=== PATIENT | female | born 1940 | race Caucasian/White ===

== ENCOUNTER 2017-10-24 16:40 | Emergency (ER) | payer MEDICARE, BC ==
[2017-10-24 17:20] LABS: Hematocrit 45.4 % (36.0-47.0); Mean Platelet Volume 7.1 fL (7.4-10.4); Red Blood Cell (RBC) Count 4.87 mill/uL (4.20-5.40); White Blood Cell (WBC) Count 6.1 thou/uL (4.8-10.8)
[2017-10-24 17:34] LABS: ALT (SGPT) 13 U/L (8-55); AST (SGOT) 14 U/L (5-34); Alkaline Phosphatase 84 U/L (40-150); Anion Gap 14 mmol/L (10-20); BUN (Urea Nitrogen) 14 mg/dL (9.8-20.1); Bilirubin, Total 0.3 mg/dL (0.2-1.2); CK (CPK) 59 U/L (29-168); Calc. Creatinine Clearance 0 mL/min (70-130); Calcium 9.7 mg/dL (7.8-10.44); Carbon Dioxide 25 mmol/L (23-31); Chloride 106 mmol/L (98-107); Estimated GFR-MDRD 55; Globulin 2.9 g/dL (2.4-3.5)
[2017-10-24 17:37] LABS: Neutrophil 48 % (42-75); Reactive Lymphocytes 6 % (0-10)
[2017-10-24 17:38] LABS: Troponin I Less than 0.010 ng/mL (< 0.028)
[2017-10-24] MEDS ORDERED: Metoprolol Tartrate 25 MG TAB ONE (18:47)
== END 2017-10-24 18:55 | disposition home or self-care (01) ==
LOC: ERS 16:40
DX: R00.0 Tachycardia, unspecified (principal); I48.91 Unspecified atrial fibrillation; Z85.43 Personal history of malignant neoplasm of ovary; Z79.899 Other long term (current) drug therapy
CPT/HCPCS: 80053; 82553; 83735; 84443; 84484; 85025; 93005

== ENCOUNTER 2018-04-07 23:10 | Emergency (ER) | payer MEDICARE, BC | END 2018-04-07 23:53 | disposition home or self-care (01) | LOC: ERS 23:10 | DX: I83.92 Asymptomatic varicose veins of left lower extremity (principal); I48.91 Unspecified atrial fibrillation; Z79.899 Other long term (current) drug therapy | CPT/HCPCS: 99283 ==

== ENCOUNTER 2019-05-07 07:29 | Outpatient (CLI) | payer MEDICARE, BC ==
--- NOTE | 2019-05-07 09:38 | ULT ---
RENAL DOPPLER WITH ULTRASOUND: HISTORY: Chronic kidney disease. COMPARISON: None. TECHNIQUE: Ott scale imaging of the kidneys is performed. Renal Doppler is performed with color flow, Doppler, and duplex waveform imaging. FINDINGS: RIGHT KIDNEY: No hydronephrosis. The right kidney measures 11.5 x 4.7 x 4.1 cm. LEFT KIDNEY: Normal cortical echotexture. No hydronephrosis. The left kidney measures 10.3 x 4.9 x 4.3 cm. Visualized bladder is unremarkable. RENAL DOPPLER: Right renal artery peak systolic velocity 93.8 cm/s. Left renal artery peak systolic velocity 137 cm /s. Aorta 73.1 cm/s. Right renal artery to aorta ratio 1.3. Left renal artery to aorta ratio 1.9. Right renal arcuate artery resistive index 0.79. Left renal artery arcuate resistive index 0.76. IMPRESSION: Increased arcuate artery resistive indices in both kidneys. Correlate for medial renal disease. POS: OFF
== END 2019-05-07 07:30 | disposition home or self-care (01) ==
LOC: BICULT 07:29
PROVIDERS: ATTEND Internal Medicine Nephrology
DX: N18.2 Chronic kidney disease, stage 2 (mild) (principal); I25.10 Atherosclerotic heart disease of native coronary artery without angina pectoris; E78.5 Hyperlipidemia, unspecified; N39.0 Urinary tract infection, site not specified; M19.90 Unspecified osteoarthritis, unspecified site
CPT/HCPCS: 36415; 76700; 76770; 80069; 81001; 82570; 84156; 85025; 85652

== ENCOUNTER 2019-05-07 08:04 | Outpatient (CLI) | payer MEDICARE, BC ==
--- NOTE | 2019-05-07 08:38 | MMO ---
Bilateral MAMMO Bilat Screen [facility]. CLINICAL HISTORY: Patient is 78 years old and is seen for screening. The patient has no family history of breast cancer. The patient has a history of ovarian cancer at age 58. The patient has a history of left Excisional Biopsy in 1977 - benign, right Excisional Biopsy in 1989 - benign, left Excisional Biopsy in 1993 - benign, bilateral Excisional Biopsy in 1995 - benign and left Stereotatic Biopsy in 1999 - benign. VIEWS: The views performed were: bilateral craniocaudal with tomosynthesis and bilateral mediolateral oblique with tomosynthesis. FILMS COMPARED: The present examination has been compared to prior imaging studies performed at [facility] on 08/03/2008, 09/23/2013, 01/07/2017 and 01/10/2017. MAMMOGRAM FINDINGS: The breasts are heterogeneously dense, which could obscure a lesion on mammography. There are multiple masses of varying size with circumscribed margins seen in both breasts. There are no suspicious masses, suspicious calcifications, or new areas of architectural distortion. IMPRESSION: THERE IS NO MAMMOGRAPHIC EVIDENCE OF MALIGNANCY. A ROUTINE FOLLOW-UP MAMMOGRAM IN 1 YEAR IS RECOMMENDED. THE RESULTS OF THIS EXAM WERE SENT TO THE PATIENT. ACR BI-RADS Category 2 - Benign finding MAMMOGRAPHY NOTE: 1. A negative mammogram report should not delay a biopsy if a dominant of clinically suspicious mass is present. 2. Approximately 10% to 15% of breast cancers are not detected by mammography. 3. Adenosis and dense breasts may obscure an underlying neoplasm.
== END 2019-05-07 08:05 | disposition home or self-care (01) ==
LOC: BICMAMMO 08:04
PROVIDERS: ATTEND Family Medicine
DX: Z12.31 Encounter for screening mammogram for malignant neoplasm of breast (principal)
CPT/HCPCS: 77063; 77067

== ENCOUNTER 2019-06-24 08:42 | Observation (INO) | payer MEDICARE, BC ==
[2019-06-24 09:51] LABS: #Eosinphils 0.1 thou/uL (0.0-0.7); #Lymphocytes 1.4 thou/uL (1.20-3.40); #Monocytes 0.6 thou/uL (0.11-0.59); #Neutrophils 6.5 thou/uL (1.40-6.50); %Basophils 0.4 % (0.0-1.0); %Eosinophils 1.2 % (0.0-10.0); %Lymphocytes 15.9 % (21.0-51.0); %Neutrophils 75.5 % (42.0-75.0); Hemoglobin 13.7 g/dL (12.0-16.0); Mean Corpuscular HGB CONC 32.6 g/dL (32.0-36.0); Mean Corpuscular Hemoglobin 29.9 pg (27.0-31.0); Mean Platelet Volume 7.2 fL (7.4-10.4); Platelet Count 225 thou/uL (130-400); RBC Distribution Width 12.5 % (11.5-14.5); Red Blood Cell (RBC) Count 4.56 mill/uL (4.20-5.40); White Blood Cell (WBC) Count 8.6 thou/uL (4.8-10.8)
--- NOTE | 2019-06-24 09:57 | RAD ---
EXAM: Single view of the chest HISTORY: Dyspnea COMPARISON: 04/09/2017 FINDINGS: Single view of the chest shows a normal sized cardiomediastinal silhouette. There is no alessandra dence of consolidation, mass, or pleural effusion. The bones are unremarkable. IMPRESSION: No evidence of acute cardiopulmonary disease
[2019-06-24 10:13] LABS: ALT (SGPT) 13 U/L (8-55); AST (SGOT) 14 U/L (5-34); Alkaline Phosphatase 86 U/L (40-150); Anion Gap 10 mmol/L (10-20); BUN (Urea Nitrogen) 12 mg/dL (9.8-20.1); Bilirubin, Total 0.6 mg/dL (0.2-1.2); Calc. Creatinine Clearance 0 mL/min (70-130); Calcium 10.3 mg/dL (7.8-10.44); Carbon Dioxide 29 mmol/L (23-31); Chloride 104 mmol/L (98-107); Estimated GFR-MDRD 78; Globulin 2.5 g/dL (2.4-3.5); Glucose 157 mg/dL (83-110); Potassium 3.7 mmol/L (3.5-5.1); Protein, Total 6.5 g/dL (6.0-8.3); Sodium 139 mmol/L (136-145)
[2019-06-24] MEDS ORDERED: Ondansetron PF 4 MG/2 ML Vial IVP PRN (14:38)
[2019-06-24] MEDS ORDERED: Ondansetron ODT 4 MG TAB PO PRN (14:38)
[2019-06-24] MEDS ORDERED: Zolpidem Tartrate 5 MG TAB PO PRN (14:38)
[2019-06-24] MEDS ORDERED: Acetaminophen 325 MG TAB PO PRN (14:38)
[2019-06-24 14:53] LABS: Troponin I Less than 0.010 ng/mL (< 0.028)
--- NOTE | 2019-06-24 15:25 | HP ---
PRIMARY CARE PHYSICIAN: Dr. Villarreal. HISTORY OF PRESENT ILLNESS: Referred to the [facility] by [facility] for dizziness, nausea, and vomiting. The patient states she got up this morning, felt lightheaded. She checked her blood pressure, it was okay. She lie down for a while, was still dizzy lying down, then developed nausea and vomiting times several. She was sweaty. States she felt like she was going to pass out because she had heard that women have atypical heart attacks. She came to the emergency room. She has no chest pain, no chest pressure, no shortness of breath. PAST MEDICAL HISTORY: Pertinent for ovarian cancer 21 years ago post chemotherapy and radiation therapy. She has a history of atrial fibrillation post 4 ablations. She has been on Xarelto and Multaq in the past, currently off all medicines for that. She states she takes a statin because her brother had an acute HI and . CURRENT MEDICATIONS: 1. Atorvastatin 10 mg a day. 2. Metoprolol 50 mg a day. 3. Aspirin 81 mg a day. 4. She says she has been told not to take any NSAIDs because of renal problems (current renal function is normal). PAST SURGICAL HISTORY: Multiple ablation for atrial fib, hysterectomy, oophorectomy. SOCIAL HISTORY: . Full code status. is unable to make decisions. Son, Reilly Douglas, is decision maker. She does not smoke or drink or use alcohol or illicit drugs. FAMILY HISTORY: Brother of acute HI at 69. No family history of cancer or strokes. REVIEW OF SYSTEMS: GENERAL: She has occasional brief lightheaded spells prior to the present illness. No fainting. No headaches. No fever or chills. EYES: No double vision, blurred vision, or flashing lights. EAR, NOSE, AND THROAT: No ear pain or drainage. No nasal bleeding or trouble swallowing. CARDIAC: No chest pain, orthopnea, or paroxysmal nocturnal dyspnea. RESPIRATIONS: She occasionally spits sinus drainage. She has no chronic cough. No asthma or wheezing. GASTROINTESTINAL: Aforementioned nausea and vomiting in the present illness. Otherwise, no abdominal pain, diarrhea, or melena, etc. GENITOURINARY: No hematuria or dysuria. MUSCULOSKELETAL: No pain or swelling in her arms or legs. NEUROLOGICAL: No strokes, seizures, or focal weakness. PSYCHIATRIC: No anxiety or depression. SKIN: She has one small resolving bruise on her left arm and she states she does not know how she got. No chronic rash. HEME/LYMPH: No tender or swollen lymph nodes in axilla, inguinal, or cervical area. PHYSICAL EXAMINATION: GENERAL: Alert, pleasant, cooperative lady, in no acute distress. VITAL SIGNS: Blood pressure 150/77, pulse 73, respirations 16, temperature 97.6. HEAD, EYES, EARS, NOSE, AND THROAT: Revealed pupils are equal, round, and reactive to light with bilateral cataracts. Extraocular movements are intact. Sclerae are white. Tympanic membranes clear. Nose clear. Oral mucous membranes are wet. Dental hygiene is good. NECK: No jugular venous distention, adenopathy, or thyromegaly. CHEST: Clear to auscultation and percussion. HEART: Regular rate and rhythm. First and second second heart sounds are clear. There are no appreciated murmurs or gallops. ABDOMEN: Soft. Bowel sounds are normal. There is no hepatosplenomegaly. No masses. No rebound. No bruits. EXTREMITIES: Reveal no cyanosis, clubbing, or edema. PULSES: Carotid, radial, femoral, and dorsalis pedis pulses intact and symmetric. SKIN: Warm and dry with one resolving 3/4 centimeter ecchymoses on her left forearm. LYMPHATIC SURVEY: No tender or swollen lymph nodes in the axilla, inguinal, or cervical area. NEUROLOGIC: Cranial nerves 2 through 12 are intact, moves all extremities. Toes going down. DIAGNOSTIC DATA: EKG regular sinus rhythm. No ST-T abnormality reviewed by me. Chest x-ray, no cardiomegaly, CHF, or infiltrate reviewed by me. LABORATORY DATA: CBC unremarkable. White count 8.6, hemoglobin 13.7, and platelet count 225,000. Comprehensive metabolic profiles; only abnormality is glucose of 157, one troponin has been done which is less than 0.01. ADMITTING DIAGNOSES: 1. Dizziness described as lightheadedness. 2. Nausea and vomiting. 3. Atrial fibrillation by history, post ablations. 4. Dyslipidemia. 5. Remote history of ovarian cancer. PLAN: 1. Telemetry. 2. Serial troponins. 3. Telemetry to monitor for atrial fib, etc. 4. Continue home medicines. 5. If her studies prove to be normal, it might be helpful to get either Dr. Dumont, her shell worker or Dr. Greenfield, EP doctor, who has seen her to evaluate her for an event recorder. Job ID: [id number]
[2019-06-24 17:13] VITALS: BMI 26.3
[2019-06-24] MEDS: Sodium Chloride 0.9% 1,000 ML IV SCH (18:00)
[2019-06-24 19:49] LABS: Troponin I Less than 0.010 ng/mL (< 0.028)
[2019-06-25] MEDS: Sodium Chloride 0.9% 1,000 ML IV SCH (02:51)
[2019-06-25 05:05] LABS: #Eosinphils 0.1 thou/uL (0.0-0.7); #Lymphocytes 2.1 thou/uL (1.20-3.40); #Neutrophils 3.5 thou/uL (1.40-6.50); %Basophils 0.6 % (0.0-1.0); %Eosinophils 2.2 % (0.0-10.0); %Lymphocytes 30.7 % (21.0-51.0); %Monocytes 14.5 % (0.0-10.0); Mean Corpuscular HGB CONC 33.7 g/dL (32.0-36.0); Mean Corpuscular Hemoglobin 30.6 pg (27.0-31.0); Mean Corpuscular Volume 90.8 fL (78.0-98.0); Platelet Count 213 thou/uL (130-400); RBC Distribution Width 12.5 % (11.5-14.5); Red Blood Cell (RBC) Count 4.24 mill/uL (4.20-5.40); White Blood Cell (WBC) Count 6.7 thou/uL (4.8-10.8)
[2019-06-25 05:20] LABS: Anion Gap 8 mmol/L (10-20); BUN (Urea Nitrogen) 9 mg/dL (9.8-20.1); Calc. Creatinine Clearance 67 mL/min (70-130); Calcium 9.7 mg/dL (7.8-10.44); Carbon Dioxide 29 mmol/L (23-31); Chloride 108 mmol/L (98-107); Estimated GFR-MDRD 76; Glucose 104 mg/dL (83-110); Potassium 4.3 mmol/L (3.5-5.1); Sodium 141 mmol/L (136-145)
[2019-06-25 08:14] VITALS: BP 122/58; TEMP 98.2
[2019-06-25] MEDS ORDERED: Enoxaparin Sodium 40 MG/0.4 ML SYRINGE SC SCH (09:00)
[2019-06-25] MEDS ORDERED: Atorvastatin Calcium 10 MG TAB PO SCH (09:00)
[2019-06-25] MEDS ORDERED: Aspirin 81 mg Enteric Coated Tablet PO SCH (11:00)
[2019-06-25] MEDS ORDERED: Vitamin E 400 UNITS CAP PO SCH (11:00)
[2019-06-25] MEDS ORDERED: Vit A,C & E/Lutein/Minerals Tablet PO SCH (11:00)
[2019-06-25] MEDS ORDERED: Calcium Carbonate + Vit D 1 TAB PO SCH (11:00)
[2019-06-25] MEDS ORDERED: Ascorbic Acid 500 mg Chewable Tablet PO SCH (11:00)
--- NOTE | 2019-06-25 14:43 | DIS ---
DATE OF ADMISSION: 06/24/2019 DATE OF DISCHARGE: 06/25/2019 PRIMARY CARE PHYSICIAN: Dr. Jorge Luis Villarreal. DISCHARGE DISPOSITION: Home. PRIMARY DISCHARGE DIAGNOSIS: Dizziness due to volume depletion. SECONDARY DISCHARGE DIAGNOSES: 1. Hypertension. 2. Dyslipidemia. 3. Paroxysmal atrial fibrillation. PRIMARY PROCEDURE/OPERATION: None. RADIOLOGICAL INVESTIGATION: Chest x-ray, normal. SIGNIFICANT LABORATORY DATA: Hemoglobin 13.0. Creatinine 0.74. Cardiac enzyme negative. LFT normal. BMP normal. DISCHARGE MEDICATIONS: 1. Vitamin C 500 mg daily. 2. Aspirin 81 mg daily. 3. Lipitor 5 mg daily. 4. Calcium with vitamin D 1 tablet daily. 5. Toprol-XL 25 mg daily. 6. Multivitamin 1 tablet daily. 7. Vitamin E 400 units p.o. daily. CONTRAINDICATION: The patient is not on chronic anticoagulation as per Cardiology recommendation. The patient is in sinus rhythm for a long period of time after ablation and now she does not need any anticoagulation therapy with her history of paroxysmal atrial fibrillation. CODE STATUS: Full code. INPATIENT SHOVEL ENGINEER: None. ALLERGIES: NSAID. DISCHARGE PLAN: Posthospital, the patient is instructed to follow up with primary care physician in 1 week. The patient is verbally instructed to make appointment with Cardiology for further evaluation if needed. HOSPITAL COURSE: A 78-year-old female with above-mentioned medical problem, who was admitted by Dr. Mike. Please see his H and P for further details. The patient was admitted for dizziness. Her dizziness was nonspecific. It was not consistent with vertigo. The patient was not having any palpitation and we did not find any cardiac arrhythmia on 24 hours monitoring while in the hospital. Her orthostatic vitals were also negative. At this point, we do not have any clear-cut explanation for dizziness, but the patient has improvement after giving her IV fluid. We advised her to follow up with Cardiology for possible need of any event recorder. At this point, the patient is stable and she will follow up with primary care physician in 1 week. I have seen and examined the patient at bedside today. All review of systems reviewed with her are negative. Her examination is completely normal. Job ID: [id number]
[2019-06-26] MEDS ORDERED: Calcium Carbonate + Vit D 1 TAB PO SCH (09:00)
[2019-06-26] MEDS ORDERED: Aspirin 81 mg Enteric Coated Tablet PO SCH (09:00)
[2019-06-26] MEDS ORDERED: Ascorbic Acid 500 mg Chewable Tablet PO SCH (09:00)
[2019-06-26] MEDS ORDERED: Vit A,C & E/Lutein/Minerals Tablet PO SCH (09:00)
[2019-06-26] MEDS ORDERED: Vitamin E 400 UNITS CAP PO SCH (09:00)
== END 2019-06-25 11:38 | disposition home or self-care (01) ==
LOC: ERS 08:42 → 2SW 16:51
PROVIDERS: ADMIT Internal Medicine; ATTEND Internal Medicine
DX: E86.9 Volume depletion, unspecified (principal); E78.5 Hyperlipidemia, unspecified; I10 Essential (primary) hypertension; I48.0 Paroxysmal atrial fibrillation; Z79.82 Long term (current) use of aspirin; Z79.899 Other long term (current) drug therapy; Z88.8 Allergy status to other drugs, medicaments and biological substances
CPT/HCPCS: 71045; 80048; 80053; 83880; 84484 ×2; 85025 ×2; 93005; 96360; 96361 ×2; 96372; 99285; G0378 ×3; 36415; J1650

== ENCOUNTER 2020-11-06 09:51 | Outpatient (CLI) | payer MEDICARE, BC ==
--- NOTE | 2020-11-06 10:49 | MMO ---
Bilateral MAMMO Bilat Diag [facility]. CLINICAL HISTORY: Patient is 80 years old and is seen for diagnostic exam and nipple abnormality in the left breast. The patient has no family history of breast cancer. The patient has a history of ovarian cancer at age 58. The patient has a history of left Excisional Biopsy in 1977 - benign, right Excisional Biopsy in 1989 - benign, left Excisional Biopsy in 1993 - benign, bilateral Excisional Biopsy in 1995 - benign and left Stereotatic Biopsy in 1999 - benign. VIEWS: The views performed were: bilateral craniocaudal with tomosynthesis; bilateral mediolateral oblique with tomosynthesis; and bilateral mediolateral with tomosynthesis. FILMS COMPARED: The present examination has been compared to prior imaging studies performed at [facility] on 01/07/2017, 01/10/2017, 05/07/2019 and 11/06/2020. This study has been interpreted with the assistance of computer-aided detection. MAMMOGRAM FINDINGS: The breasts are heterogeneously dense, which could obscure a lesion on mammography. Right breast mass is stable. There are stable right post-operative changes. Left niplle retraction is stable since last year. There are prominient left retroaerolar ducts without mass on US. There is a mass in the left breast corresponding to a 12 mm cyst at 4:00 on US which is also sen on mammogram. There are no suspicious masses, suspicious calcifications, or new areas of architectural distortion. IMPRESSION: THERE IS NO MAMMOGRAPHIC EVIDENCE OF MALIGNANCY. A ROUTINE FOLLOW-UP MAMMOGRAM IN 1 YEAR IS RECOMMENDED. THE RESULTS OF THIS EXAM WERE SENT TO THE PATIENT. ACR BI-RADS Category 2 - Benign finding MAMMOGRAPHY NOTE: 1. A negative mammogram report should not delay a biopsy if a dominant of clinically suspicious mass is present. 2. Approximately 10% to 15% of breast cancers are not detected by mammography. 3. Adenosis and dense breasts may obscure an underlying neoplasm. Reported by: HANDY DICKERSON MD Electonically Signed: [id number]
--- NOTE | 2020-11-06 11:19 | ULT ---
LIMITED LEFT BREAST ULTRASOUND: Date: 11/06/2020 HISTORY: Inverted nipple. FINDINGS: Correlation made with mammogram of same date. The sonographic evaluation of the left retroareolar region demonstrates mildly dilated ducts without evidence of intraductal mass. There is a 1.2 cm somewhat lobulated cyst at the 4 o'clock position 2.0 cm from the nipple which hira esponds to the mass on the mammogram. IMPRESSION: BI-RADS Category 2 - Benign findings. Return to annual mammographic screening. POS: OFF
== END 2020-11-06 09:52 | disposition home or self-care (01) ==
LOC: BICMAMMO 09:51
PROVIDERS: ATTEND Family Medicine
DX: N64.59 Other signs and symptoms in breast (principal)
CPT/HCPCS: 76642; 77066; G0279

== ENCOUNTER 2021-09-27 02:09 | Inpatient (IN) | payer MEDICARE, BC ==
[2021-09-27 02:37] LABS: #Eosinphils 0.1 thou/uL (0.0-0.7); #Lymphocytes 1.4 thou/uL (1.20-3.40); #Monocytes 1.4 thou/uL (0.11-0.59); #Neutrophils 10.9 thou/uL (1.40-6.50); %Basophils 0.3 % (0.0-1.0); %Eosinophils 0.4 % (0.0-10.0); %Lymphocytes 10.1 % (21.0-51.0); %Monocytes 10.3 % (0.0-10.0); %Neutrophils 78.9 % (42.0-75.0); Hemoglobin 15.3 g/dL (12.0-16.0); Mean Corpuscular HGB CONC 34.6 g/dL (32.0-36.0); Mean Corpuscular Hemoglobin 31.3 pg (27.0-31.0); Mean Corpuscular Volume 90.5 fL (78.0-98.0); Mean Platelet Volume 7.5 fL (7.4-10.4); Platelet Count 226 thou/uL (130-400); RBC Distribution Width 12.5 % (11.5-14.5); White Blood Cell (WBC) Count 13.8 thou/uL (4.8-10.8)
[2021-09-27 02:58] LABS: ALT (SGPT) 15 U/L (8-55); AST (SGOT) 15 U/L (5-34); Albumin 4.3 g/dL (3.4-4.8); Alkaline Phosphatase 102 U/L (40-110); Anion Gap 15 mmol/L (10-20); BUN (Urea Nitrogen) 14 mg/dL (9.8-20.1); Calc. Creatinine Clearance 0 mL/min (70-130); Calcium 10.7 mg/dL (7.8-10.44); Carbon Dioxide 26 mmol/L (23-31); Chloride 101 mmol/L (98-107); Globulin 2.5 g/dL (2.4-3.5); Glucose 166 mg/dL (83-110); Lipase 8 U/L (8-78); Potassium 3.3 mmol/L (3.5-5.1); Protein, Total 6.8 g/dL (5.8-8.1); Sodium 139 mmol/L (136-145)
[2021-09-27] MEDS ORDERED: Ondansetron PF 4 MG/2 ML Vial IVP PRN (06:03)
[2021-09-27] MEDS ORDERED: Acetaminophen 325 MG TAB PO PRN (06:03)
[2021-09-27] MEDS ORDERED: Ondansetron ODT 4 MG TAB PO PRN (06:03)
[2021-09-27] MEDS ORDERED: Acetaminophen 650 MG Suppository PR PRN (06:03)
[2021-09-27] MEDS ORDERED: Morphine 4 MG/ML VIAL SLOW IVP PRN (06:05)
[2021-09-27] MEDS ORDERED: Iopamidol-370 76% 500 ML 1 ML ONE (09:09)
[2021-09-27] MEDS: Sodium Chloride 0.45% 1,000 ML IV SCH ×2 (09:49→18:30)
[2021-09-27] MEDS: Potassium Chloride 20 MEQ in Premix Bag 1 BAG IVPB SCH ×2 (09:50→12:18)
[2021-09-27] MEDS: Pantoprazole 40 MG VIAL IVP SCH ×2 (09:59→20:20)
[2021-09-27 10:09] VITALS: BMI 24.7
[2021-09-27 17:47] LABS: SARS-CoV-2 NAA Rapid Test Not Detected (NotDetected)
[2021-09-28] MEDS: Sodium Chloride 0.45% 1,000 ML IV SCH ×2 (02:04→08:27)
[2021-09-28 06:04] LABS: #Basophils 0.1 thou/uL (0.0-0.2); #Eosinphils 0.1 thou/uL (0.0-0.7); #Lymphocytes 1.8 thou/uL (1.20-3.40); #Monocytes 0.9 thou/uL (0.11-0.59); #Neutrophils 3.7 thou/uL (1.40-6.50); %Basophils 0.8 % (0.0-1.0); %Eosinophils 2.3 % (0.0-10.0); %Lymphocytes 27.1 % (21.0-51.0); %Monocytes 14.1 % (0.0-10.0); %Neutrophils 55.8 % (42.0-75.0); Hemoglobin 12.3 g/dL (12.0-16.0); Mean Corpuscular HGB CONC 33.7 g/dL (32.0-36.0); Mean Corpuscular Hemoglobin 31.4 pg (27.0-31.0); Mean Corpuscular Volume 93.2 fL (78.0-98.0); Mean Platelet Volume 7.5 fL (7.4-10.4); Platelet Count 170 thou/uL (130-400); RBC Distribution Width 12.4 % (11.5-14.5); Red Blood Cell (RBC) Count 3.92 mill/uL (4.20-5.40); White Blood Cell (WBC) Count 6.7 thou/uL (4.8-10.8)
[2021-09-28 06:27] LABS: Anion Gap 11 mmol/L (10-20); BUN (Urea Nitrogen) 11 mg/dL (9.8-20.1); Calc. Creatinine Clearance 73 mL/min (70-130); Calcium 9.5 mg/dL (7.8-10.44); Carbon Dioxide 25 mmol/L (23-31); Chloride 106 mmol/L (98-107); Glucose 63 mg/dL (83-110); Potassium 3.9 mmol/L (3.5-5.1); Sodium 138 mmol/L (136-145)
[2021-09-28] MEDS: Pantoprazole 40 MG VIAL IVP SCH (08:27)
[2021-09-28] MEDS ORDERED: PROPOFOL 200 MG/20 ML VIAL ONE (11:05)
[2021-09-28] MEDS ORDERED: Dexamethasone 20 MG/5 ML VIAL ONE (11:05)
[2021-09-28] MEDS ORDERED: Lidocaine 1% PF 5 ML VIAL ONE (11:05)
[2021-09-28] MEDS ORDERED: Ondansetron PF 4 MG/2 ML Vial ONE (11:05)
[2021-09-28] MEDS ORDERED: Succinylcholine 200 MG/10 ml SYRINGE FS ONE (11:05)
[2021-09-28 12:50] VITALS: BP 132/66; TEMP 97.8
== END 2021-09-28 16:38 | disposition home or self-care (01) | DRG 389 ==
LOC: ERS 02:09 → ERHOLD 05:43 → SURG B 08:58
PROVIDERS: ADMIT Student in an Organized Health Care Education/Training Program; ATTEND Internal Medicine
PROC: 0DB78ZX Excision of Stomach, Pylorus, Via Natural or Artificial Opening Endoscopic, Diagnostic (ICD-10-PCS; principal; 2021-09-28)
DX: K56.609 Unspecified intestinal obstruction, unspecified as to partial versus complete obstruction (principal); K92.0 Hematemesis; Z20.822 Contact with and (suspected) exposure to COVID-19; E86.0 Dehydration; K29.00 Acute gastritis without bleeding; E87.6 Hypokalemia; I48.91 Unspecified atrial fibrillation; K76.0 Fatty (change of) liver, not elsewhere classified; E83.52 Hypercalcemia; N28.89 Other specified disorders of kidney and ureter; Z90.710 Acquired absence of both cervix and uterus; Z90.49 Acquired absence of other specified parts of digestive tract; Z88.6 Allergy status to analgesic agent; Z79.82 Long term (current) use of aspirin; Z79.899 Other long term (current) drug therapy
CPT/HCPCS: 36415; 71045; 74018; 74177; 80048; 80053; 83690; 83735; 84484; 85025; 88305; 93005; C9113; J1100; J2405; J2704; J3480; Q9967; U0002

== ENCOUNTER 2022-06-18 13:56 | Outpatient (CLI) | payer MEDICARE, BC | END 2022-06-18 13:57 | disposition home or self-care (01) | LOC: BICMAMMO 13:56 | PROVIDERS: ATTEND Family Medicine | DX: Z12.31 Encounter for screening mammogram for malignant neoplasm of breast (principal); Z91.89 Other specified personal risk factors, not elsewhere classified; Z80.41 Family history of malignant neoplasm of ovary | CPT/HCPCS: 77063; 77067 ==

== ENCOUNTER 2022-12-03 10:08 | Emergency (ER) | payer MEDICARE, BC ==
[2022-12-03] MEDS ORDERED: Bacitracin 1 PK ONE (10:25)
== END 2022-12-03 10:45 | disposition home or self-care (01) ==
LOC: ERS 10:08
DX: I83.891 Varicose veins of right lower extremity with other complications (principal); Z79.82 Long term (current) use of aspirin
CPT/HCPCS: 99283

== ENCOUNTER 2023-10-06 12:59 | Outpatient (CLI) | payer MEDICARE, BC | END 2023-10-06 13:00 | disposition home or self-care (01) | LOC: BICMAMMO 12:59 | PROVIDERS: ATTEND Family Medicine | DX: Z12.31 Encounter for screening mammogram for malignant neoplasm of breast (principal); Z91.89 Other specified personal risk factors, not elsewhere classified; Z85.43 Personal history of malignant neoplasm of ovary | CPT/HCPCS: 77063; 77067 ==

== ENCOUNTER 2024-11-09 12:32 | Outpatient (CLI) | payer MEDICARE, BC | END 2024-11-09 12:33 | disposition home or self-care (01) | LOC: BICMAMMO 12:32 | PROVIDERS: ATTEND Family Medicine | DX: Z12.31 Encounter for screening mammogram for malignant neoplasm of breast (principal); Z91.89 Other specified personal risk factors, not elsewhere classified; N64.89 Other specified disorders of breast; Z85.43 Personal history of malignant neoplasm of ovary | CPT/HCPCS: 77063; 77067 ==

== ENCOUNTER 2024-11-19 14:50 | Outpatient (CLI) | payer MEDICARE, BC | END 2024-11-19 14:51 | disposition home or self-care (01) | LOC: BICMAMMO 14:50 | PROVIDERS: ATTEND Family Medicine | DX: N64.89 Other specified disorders of breast (principal) | CPT/HCPCS: 77065; G0279 ==